=== PATIENT | female | born 2000 | race Caucasian/White ===

== ENCOUNTER 2023-04-01 13:28 | Outpatient (CLI) | payer OTHER | END 2023-04-01 13:29 | disposition home or self-care (01) | LOC: CSHULT 13:28 | PROVIDERS: ATTEND Family Medicine | DX: O09.893 Supervision of other high risk pregnancies, third trimester (principal); Z3A.31 31 weeks gestation of pregnancy | CPT/HCPCS: 76805 ==

== ENCOUNTER 2023-04-23 20:16 | Day surgery (SDC) | payer OTHER ==
[2023-04-23] MEDS ORDERED: hydrALAZINE 20 MG/ML VIAL SLOW IVP PRN (21:40)
[2023-04-23 21:45] VITALS: BMI 34.9
[2023-04-23 22:03] LABS: #Eosinphils 0.1 10x3/uL (0.0-0.5); #Monocytes 0.8 10x3/uL (0.0-1.1); #Neutrophils 7.8 10x3/uL (1.5-8.4); %Basophils 0.3 % (0.0-2.0); %Eosinophils 1.3 % (0.0-6.0); %Lymphocytes 15.3 % (18.0-47.0); %Monocytes 7.2 % (0.0-10.0); %Neutrophils 74.3 % (40.0-75.0); Hematocrit 31.9 % (34.9-44.5); Hemoglobin 10.7 g/dL (12.0-15.5); Mean Corpuscular HGB CONC 33.5 g/dL (32.0-36.0); Mean Corpuscular Hemoglobin 30.8 pg (27.0-33.0); Mean Corpuscular Volume 91.9 fl (81.6-98.3); Mean Platelet Volume 11.4 fl (7.4-10.4); Platelet Count 224 10x3/uL (150-450); RBC Distribution Width 15.1 % (11.5-14.5); Red Blood Cell (RBC) Count 3.47 10x6/uL (3.90-5.03); White Blood Cell (WBC) Count 10.4 10x3/uL (3.5-10.5)
[2023-04-23 22:08] LABS: Bilirubin Neg (Negative); Blood, Urine Negative (Negative); Clarity Slightly Cloudy (Clear); Glucose, Urine (Dipstick) Normal (Negative); Ketone, Urine 15 mg/dL (Negative); Leukocyte 100 (Negative); Nitrite Negative (Negative); Protein, Urine (Dipstick) 15 mg/dl (Neg-Trace); Urobilinogen Normal mg/dL (Less than 2)
[2023-04-23 22:18] LABS: ALT (SGPT) 20 U/L (8-55); AST (SGOT) 19 U/L (5-34); Albumin 3.7 g/dL (3.5-5.0); Alkaline Phosphatase 103 U/L (40-110); Anion Gap 17 mmol/L (10-20); BUN (Urea Nitrogen) 4 mg/dL (7.0-18.7); Bilirubin, Total 0.6 mg/dL (0.2-1.2); Calc. Creatinine Clearance 239 mL/min (70-130); Calcium 9.1 mg/dL (7.8-10.44); Carbon Dioxide 19 mmol/L (22-29); Chloride 104 mmol/L (98-107); Estimated GFR 131; Globulin 2.8 g/dL (2.4-3.5); Glucose 88 mg/dL (70-105); Potassium 4.1 mmol/L (3.5-5.1); Protein, Total 6.5 g/dL (6.0-8.3); Sodium 136 mmol/L (136-145)
[2023-04-23 22:23] LABS: Creatinine, Urine 77.66 mg/dL (47-110); Protein, Urine Random Quant Less than 10 mg/dL (1-14)
[2023-04-23 22:31] LABS: Bacteria/HPF None Seen HPF (None Seen); CAUTI Indications for Culture Pregnancy; RBC/HPF None Seen HPF (0-3); Squamous Epithelial 0-3 HPF (0-3); WBC/HPF 0-3 HPF (0-3)
[2023-04-23 22:32] LABS: Urine Culture Reflex Yes Yes
[2023-04-23] MEDS ORDERED: Lactated Ringer's 1,000 ML IV SCH ×2 (23:30)
[2023-04-25 12:05] LABS: Chlamydia by PCR, Vaginal Swab Not Detected (NotDetected); GC by PCR, Vaginal Swab Not Detected (NotDetected)
== END 2023-04-23 23:30 | disposition home or self-care (01) ==
LOC: CSHLD/OP 20:16
PROVIDERS: ATTEND Family Medicine
DX: O99.891 Other specified diseases and conditions complicating pregnancy (principal); R10.9 Unspecified abdominal pain; R03.0 Elevated blood-pressure reading, without diagnosis of hypertension; N89.8 Other specified noninflammatory disorders of vagina; O23.593 Infection of other part of genital tract in pregnancy, third trimester; Z79.899 Other long term (current) drug therapy; Z3A.34 34 weeks gestation of pregnancy
CPT/HCPCS: 80053; 81001; 82570; 84156; 85025; 87086; 87480; 87491; 87510; 87591; 87660; 96360; 96361; 99285

== ENCOUNTER 2023-05-19 18:00 | Inpatient (IN) | payer OTHER ==
[~2023-05-19 18:00] MED LIST: Bupivacaine 0.25% HCL 30 ML VIAL ONE
[2023-05-19] MEDS ORDERED: Ibuprofen 800 MG TAB PO PRN (19:27)
[2023-05-19] MEDS ORDERED: Methylergonovine 0.2 MG/ML VIAL IM PRN (19:27)
[2023-05-19] MEDS ORDERED: Carboprost 250 MCG/ML AMP IM PRN (19:27)
[2023-05-19] MEDS ORDERED: Misoprostol 200 MCG TAB PR PRN (19:27)
[2023-05-19] MEDS ORDERED: Lidocaine 1% (PF) 30 ML VIAL SC PRN (19:27)
[2023-05-19] MEDS ORDERED: hydrALAZINE 20 MG/ML VIAL SLOW IVP PRN (19:27)
[2023-05-19] MEDS ORDERED: Diphenoxylate HCl/Atropine Tablet PO PRN (19:27)
[2023-05-19] MEDS ORDERED: Promethazine HCl 25 MG/ML VIAL IM PRN (19:27)
[2023-05-19] MEDS ORDERED: Tranexamic Acid 1,000 MG/10 ML VIAL IVP PRN (19:27)
[2023-05-19] MEDS ORDERED: HYDROcodone/Acetaminophen 5/325 mg Tablet PO PRN (19:27)
[2023-05-19] MEDS ORDERED: Ondansetron PF 4 MG/2 ML Vial IVP PRN (19:27)
[2023-05-19] MEDS ORDERED: Acetaminophen 500 MG TAB PO PRN (19:27)
[2023-05-19] MEDS ORDERED: Oxytocin 30 units/NS 500 ML 500 ML IV SCH ×3 (19:30)
[2023-05-19 19:31] VITALS: BMI 34.9
[2023-05-19] MEDS: Misoprostol 100 MCG TAB VAG SCH (20:13)
[2023-05-19 20:34] LABS: Hematocrit 32.9 % (34.9-44.5); Hemoglobin 10.9 g/dL (12.0-15.5); Mean Corpuscular HGB CONC 33.1 g/dL (32.0-36.0); Mean Corpuscular Hemoglobin 29.4 pg (27.0-33.0); Mean Corpuscular Volume 88.7 fl (81.6-98.3); Mean Platelet Volume 12.1 fl (7.4-10.4); Platelet Count 227 10x3/uL (150-450); RBC Distribution Width 15.8 % (11.5-14.5); Red Blood Cell (RBC) Count 3.71 10x6/uL (3.90-5.03)
[2023-05-19] MEDS ORDERED: Calcium Carbonate 500 MG ChewTAB PO PRN (20:34)
[2023-05-19 20:56] LABS: PTT 25.7 sec (22.0-33.0); Prothrombin Time 10.4 sec (9.5-12.1)
[2023-05-19 21:08] LABS: HBSAg Index 0.13 S/CO (0-0.99); Hep B Surf Ag - L&D Non-Reactive S/CO (NonReactive)
[2023-05-19 21:09] LABS: Syphilis Antibody Nonreactive (Nonreactive); Syphilis Antibody Index 0.05 S/CO (<1.00 Non-Reactive)
[2023-05-20] MEDS: fentaNYL 50 mcg/mL 1 mL Vial SLOW IVP PRN ×2 (02:06→05:01)
[2023-05-20] MEDS ORDERED: fentaNYL/Ropivacaine Epidural 100 ML ONE (06:52)
[2023-05-20] MEDS ORDERED: Acetaminophen 325 MG TAB PO PRN (10:14)
[2023-05-20] MEDS ORDERED: Lactated Ringer's 500 ML IV PRN (10:14)
[2023-05-20] MEDS ORDERED: Moisturizing Cream (Eucerin) 113 GM JAR TOP PRN (10:14)
[2023-05-20] MEDS ORDERED: ePHEDrine Sulfate 50 MG/10 ML VIAL SLOW IVP PRN (10:14)
[2023-05-20] MEDS ORDERED: Ondansetron PF 4 MG/2 ML Vial IVP PRN ×2 (10:14→15:46)
[2023-05-20] MEDS ORDERED: Promethazine HCl 25 MG/ML VIAL IM PRN ×2 (10:14→15:46)
[2023-05-20] MEDS ORDERED: diphenhydrAMINE 50 MG/ML VIAL IVP PRN (10:14)
[2023-05-20] MEDS ORDERED: Naloxone HCl 0.4 mg/ml Vial IVP PRN ×2 (10:14)
[2023-05-20] MEDS ORDERED: fentaNYL 2 mcg/Ropivacaine 0.2% Epidural 100 ML CADD EPIDURAL SCH (10:15)
[2023-05-20] MEDS ORDERED: Communication Order-Pharmacy FS SCH (10:15)
[2023-05-20 13:04] LABS: RapidComm Collect By CBN
[2023-05-20 13:05] LABS: RapidComm Collect By CBN; pH (Cord, venous) 7.168 (7.250-7.350)
[2023-05-20] MEDS: Misoprostol 100 MCG TAB VAG SCH (14:30)
[2023-05-20] MEDS: Lactated Ringer's 1,000 ML IV SCH (14:30)
[2023-05-20] MEDS ORDERED: Bisacodyl 10 MG SUPP PR PRN (15:46)
[2023-05-20] MEDS ORDERED: Lanolin Ointment 7 GM TUBE TOP PRN (15:46)
[2023-05-20] MEDS ORDERED: Benzocaine-Menthol 82.5 ML CAN TOP PRN (15:46)
[2023-05-20] MEDS ORDERED: hydrALAZINE 20 MG/ML VIAL SLOW IVP PRN (15:46)
[2023-05-20] MEDS ORDERED: Boostrix 0.5 ML (Tdap) VIAL (>/=7 yrs of age) IM ONE (15:46)
[2023-05-20] MEDS ORDERED: diphenhydrAMINE 25 MG CAP PO PRN (15:46)
[2023-05-20] MEDS: Ferrous Sulfate 325 MG TAB PO SCH (16:17)
[2023-05-20] MEDS: HYDROcodone/Acetaminophen 5/325 mg Tablet PO PRN (19:55)
[2023-05-20] MEDS: Milk Of Magnesia 30 ML UDCUP PO SCH (21:30)
[2023-05-20] MEDS: Docusate 100 MG CAP PO SCH (21:30)
[2023-05-20] MEDS: Ibuprofen 800 MG TAB PO SCH (22:24)
[2023-05-21] MEDS: HYDROcodone/Acetaminophen 5/325 mg Tablet PO PRN ×2 (04:37→08:43)
[2023-05-21] MEDS: Ibuprofen 800 MG TAB PO SCH ×3 (06:04→23:16)
[2023-05-21] MEDS: Ferrous Sulfate 325 MG TAB PO SCH (07:02)
[2023-05-21] MEDS: Labetalol HCl 100 MG TAB PO SCH ×3 (08:13→20:46)
[2023-05-21] MEDS: Docusate 100 MG CAP PO SCH ×2 (08:13→20:46)
[2023-05-21] MEDS: Prenatal Vitamin 1 TAB PO SCH (08:13)
[2023-05-21] MEDS: Milk Of Magnesia 30 ML UDCUP PO SCH ×2 (08:13→20:45)
[2023-05-21 09:52] LABS: Creatinine, Urine 68.38 mg/dL (47-110)
[2023-05-21] MEDS ORDERED: Acetaminophen 500 MG TAB PO SCH (20:30)
[2023-05-22] MEDS: HYDROcodone/Acetaminophen 5/325 mg Tablet PO PRN (00:29)
[2023-05-22] MEDS: Ferrous Sulfate 325 MG TAB PO SCH ×2 (07:02→07:03)
[2023-05-22] MEDS: Prenatal Vitamin 1 TAB PO SCH (08:02)
[2023-05-22] MEDS: Ibuprofen 800 MG TAB PO SCH (08:02)
[2023-05-22] MEDS: Milk Of Magnesia 30 ML UDCUP PO SCH (08:03)
[2023-05-22] MEDS: Docusate 100 MG CAP PO SCH (08:03)
[2023-05-22] MEDS: Labetalol HCl 100 MG TAB PO SCH (08:03)
[2023-05-22 11:33] VITALS: BP 134/66; TEMP 97.8
== END 2023-05-22 15:10 | disposition home or self-care (01) | DRG 768 ==
LOC: CSHLD 19:12 → CSHPP 05-20 15:30
PROVIDERS: ADMIT Family Medicine; ATTEND Family Medicine
PROC: 10D07Z6 Extraction of Products of Conception, Vacuum, Via Natural or Artificial Opening (ICD-10-PCS; principal; 2023-05-20)
PROC: 0DQR0ZZ Repair Anal Sphincter, Open Approach (ICD-10-PCS; 2023-05-20)
PROC: 3E0P7VZ Introduction of Hormone into Female Reproductive, Via Natural or Artificial Opening (ICD-10-PCS; 2023-05-20)
DX: O99.12 Other diseases of the blood and blood-forming organs and certain disorders involving the immune mechanism complicating childbirth (principal); Z37.0 Single live birth; D68.59 Other primary thrombophilia; Z3A.38 38 weeks gestation of pregnancy; O69.81X0 Labor and delivery complicated by cord around neck, without compression, not applicable or unspecified; O70.20 Third degree perineal laceration during delivery, unspecified
CPT/HCPCS: 36415; 51702; 82570; 82805; 84156; 85027; 85610; 85730; 86780; 86850; 86900; 86901; 87340; J1650; J2405; J3010; S0020